=== PATIENT | male | born 1955 | race Caucasian/White ===

== ENCOUNTER 2021-03-05 08:33 | Emergency (ER) | payer MEDICAID ==
[~2021-03-05] VITALS: Ht 165.1 cm; Wt 68.5 kg
--- NOTE | 2021-03-05 08:35 | NUR ---
Patient brought in by [facility] because he wishes to have a bandage removed from his right eye, staff informed that patient has an appointment with eye surgeon today at 10 am, patient informed that his eye bandage must be removed by eye surgeon
--- NOTE | 2021-03-05 08:37 | NUR ---
at bedside for assessment
--- NOTE | 2021-03-05 08:54 | NUR ---
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
--- NOTE | 2021-03-05 09:23 | NUR ---
Patient picked up by his two sisters, Patient discharged to home in stable condition. Written and verbal after care instructions given. Patient verbalizes understanding of instructions. Stressed follow up or return to ER for worsening s/s.
[2021-03-05 09:33] VITALS: BP 136/78
== END 2021-03-05 09:20 | disposition home or self-care (01) ==
LOC: ER 08:34
DX: Z48.89 Encounter for other specified surgical aftercare (principal); Z88.0 Allergy status to penicillin; E11.9 Type 2 diabetes mellitus without complications
CPT/HCPCS: A4663